=== PATIENT | male | born 1995 | race Asian ===

== ENCOUNTER 2024-06-25 14:56 | Inpatient (IN) | payer OTHER ==
[~2024-06-25] VITALS: Ht 144.8 cm; Wt 52.3 kg
[~2024-06-25 14:56] MED LIST: ALBU2.5V39 NEB; BACL10TA PO; LEVE500S7 GT; POLY17PO62 PO; TRIH2TAB3 PO; [UNRECOGNIZED DRUG - CODE] GT
[2024-06-25] MEDS ORDERED: 0.9% SODIUM CHLORIDE 10 ML SYRINGE IVP PRN (15:45)
[2024-06-25 16:05] LABS: BASOPHILS % (AUTO) 0.3 % (0.0-2.0); EOSINOPHILS % (AUTO) 1.4 % (1.0-6.0); HEMATOCRIT 50.7 % (41-53); HEMOGLOBIN 16.6 g/dL (13.5-17.5); LYMPHOCYTES # (AUTO) 1.6 K/uL (1.0-4.8); LYMPHOCYTES % (AUTO) 17.9 % (22.0-44.0); MEAN CORPUSCULAR HEMOGLOBIN 30.4 pg (26.0-34.0); MEAN CORPUSCULAR HGB CONC 32.6 G/dL (31.0-37.0); MEAN CORPUSCULAR VOLUME 93 fL (80-100); MONOCYTES # (AUTO) 0.8 K/uL (0.1-1.0); MONOCYTES % (AUTO) 8.6 % (2.0-9.0); NEUTROPHILS # (AUTO) 6.4 K/uL (1.8-7.7); NEUTROPHILS % (AUTO) 71.8 % (40.0-70.0); PLATELET COUNT (AUTO) 173 K/uL (150-450); RED BLOOD CELL COUNT(AUTO) 5.45 MIL/uL (4.50-5.90); WHITE BLOOD COUNT (AUTO) 8.9 K/uL (4.5-11.0)
[2024-06-25 16:14] LABS: ANION GAP 3 mmol/L (8-16); CARBON DIOXIDE 34 mmol/L (22-29); CHLORIDE 102 mmol/L (98-107); CREATININE 0.55 mg/dL (0.60-1.30); GLOMERULAR FILTR. RATE CALC > 60 mL/min (>60); GLUCOSE,RANDOM 105 mg/dL (70-110); POTASSIUM 5.1 mmol/L (3.5-5.1); SODIUM SERUM 139 mmol/L (136-145); UREA NITROGEN, BLOOD 16 mg/dL (7-18)
[2024-06-25 16:15] LABS: PROTHROMBIN TIME 10.3 SEC (9.4-11.6)
[2024-06-25] MEDS ORDERED: ACETAMINOPHEN 325 MG TABLET PO PRN (16:15)
[2024-06-25] MEDS ORDERED: LORazepam 2 MG/ML VIAL IVP PRN ×2 (16:15)
[2024-06-25] MEDS ORDERED: BISACODYL 10 MG RECTAL RECTAL SUPPOSITORY PR PRN (16:15)
[2024-06-25] MEDS ORDERED: ONDANSETRON HCL 4 MG/2 ML VIAL IVP PRN (16:15)
[2024-06-25] MEDS: LevETIRAcetam 500 MG in DEXTROSE 5%-WATER 100 ML IV ONE (16:49)
[2024-06-25] MEDS: SODIUM CHLORIDE 0.9% 1,050 ML IV ONE (16:50)
[2024-06-25 20:57] VITALS: BP 115/66; PULSE 91; RESP 20; TEMP 97.9; O2SAT 96
[2024-06-25 23:36] VITALS: BP 110/68; PULSE 87; RESP 18; TEMP 97.7; O2SAT 98
[2024-06-26] MEDS: HEPARIN SODIUM,PORCINE 5,000 UNITS/ML VIAL SQ SCH (01:13)
[2024-06-26 03:50] VITALS: BP 119/71; PULSE 87; RESP 18; TEMP 97.7; O2SAT 99
[2024-06-26 08:19] VITALS: BP 117/85; PULSE 81; RESP 17; TEMP 98.1; O2SAT 98
[2024-06-26] MEDS: PANTOPRAZOLE SODIUM 40 MG/VIAL IVP SCH (08:25)
[2024-06-26] MEDS: LevETIRAcetam 500 MG TABLET PEG SCH (08:26)
[2024-06-26] MEDS: DOCUSATE SODIUM 100 MG/10 ML LIQUID UDCUP PEG SCH (08:26)
[2024-06-26 11:49] LABS: BASOPHILS % (AUTO) 0.3 % (0.0-2.0); EOSINOPHILS % (AUTO) 3.4 % (1.0-6.0); HEMATOCRIT 47.8 % (41-53); HEMOGLOBIN 15.8 g/dL (13.5-17.5); LYMPHOCYTES # (AUTO) 1.2 K/uL (1.0-4.8); LYMPHOCYTES % (AUTO) 22.3 % (22.0-44.0); MEAN CORPUSCULAR HEMOGLOBIN 30.9 pg (26.0-34.0); MEAN CORPUSCULAR HGB CONC 33.1 G/dL (31.0-37.0); MEAN CORPUSCULAR VOLUME 93 fL (80-100); MONOCYTES # (AUTO) 0.5 K/uL (0.1-1.0); MONOCYTES % (AUTO) 9.4 % (2.0-9.0); NEUTROPHILS # (AUTO) 3.6 K/uL (1.8-7.7); NEUTROPHILS % (AUTO) 64.6 % (40.0-70.0); PLATELET COUNT (AUTO) 152 K/uL (150-450); RED BLOOD CELL COUNT(AUTO) 5.12 MIL/uL (4.50-5.90); RED CELL DISTRIBUTION WIDTH 12.6 % (11.5-14.5); WHITE BLOOD COUNT (AUTO) 5.6 K/uL (4.5-11.0)
[2024-06-26 11:57] LABS: ANION GAP 2 mmol/L (8-16); CALCIUM, TOTAL 9.4 mg/dL (8.8-10.5); CARBON DIOXIDE 33 mmol/L (22-29); CHLORIDE 104 mmol/L (98-107); GLOMERULAR FILTR. RATE CALC > 60 mL/min (>60); GLUCOSE,RANDOM 93 mg/dL (70-110); SODIUM SERUM 139 mmol/L (136-145); UREA NITROGEN, BLOOD 10 mg/dL (7-18)
[2024-06-26 12:19] LABS: LACTIC ACID 2.4 mmol/L (0.4-2.0)
[2024-06-26 12:21] VITALS: BP 111/70; PULSE 86; RESP 17; TEMP 97.9; O2SAT 98
[2024-06-26 16:51] VITALS: BP 112/75; PULSE 81; RESP 19; TEMP 97.7; O2SAT 99
[2024-06-26 20:07] VITALS: BP 108/64; PULSE 85; RESP 18; TEMP 97.9; O2SAT 97
[2024-06-26 21:41] LABS: GLUCOMETER DEV NAME(LOC) 5N.2C; GLUCOSE,POINT OF CARE 93 MG/DL (70-110)
[2024-06-26 23:43] VITALS: BP 107/70; PULSE 90; RESP 18; TEMP 97.7; O2SAT 97
[2024-06-27 04:34] VITALS: BP 109/95; PULSE 86; RESP 18; TEMP 97.7; O2SAT 100
[2024-06-27 05:10] LABS: APPEARANCE,URINE HAZY (CLEAR); COLOR,URINE DARK YELLOW (YELLOW); GLUCOSE, URINE (UA) NEGATIVE (NEGATIVE); KETONES,URINE 40-60 mg/dL (NEGATIVE); LEUKOCYTE ESTERASE ,URINE NEGATIVE (NEGATIVE); NITRATE,URINE NEGATIVE (NEGATIVE); OCCULT BLOOD,URINE NEGATIVE (NEGATIVE); PROTEIN,URINE TRACE mg/dL (NEGATIVE); SPECIFIC GRAVITIY, URINE 1.038 (1.003-1.030)
[2024-06-27 05:13] LABS: BILIRUBIN,URINE MODERATE (NEGATIVE)
[2024-06-27 05:14] LABS: BACTERIA,URINE Few /HPF (None Seen); RBC,URINE 0-2 /HPF (0-2); WBC,URINE 0-2 /HPF (0-5)
[2024-06-27 07:31] VITALS: BP 124/81; PULSE 108; RESP 18; TEMP 98.1; O2SAT 98
[2024-06-27 11:06] LABS: GLUCOMETER DEV NAME(LOC) 5N.2C; GLUCOSE,POINT OF CARE 88 MG/DL (70-110)
[2024-06-27 11:37] VITALS: BP 118/80; PULSE 91; RESP 18; TEMP 97.7; O2SAT 98
== END 2024-06-27 14:08 | disposition home or self-care (01) | DRG 53 ==
LOC: EMS 14:56 → EDH 17:47 → 5S 20:05
PROVIDERS: ADMIT Internal Medicine; ATTEND Internal Medicine
DX: G40.909 Epilepsy, unspecified, not intractable, without status epilepticus (principal); G80.0 Spastic quadriplegic cerebral palsy; R65.10 Systemic inflammatory response syndrome (SIRS) of non-infectious origin without acute organ dysfunction; R13.10 Dysphagia, unspecified
CPT/HCPCS: 71045; 80048; 81001; 82962; 83605; 84145; 85025; 85610; 87040; 93005; 96360; 99285; G0482; J0712; J1644; J2470; J7060; 36415-L1; 36415-TC